=== PATIENT | female | born 1985 | race African-American/Black ===

== ENCOUNTER 2018-06-06 20:01 | Emergency (ER) | payer OTHER ==
[~2018-06-06] VITALS: Ht 165.1 cm; Wt 90.9 kg
[2018-06-07] MEDS ORDERED: IPRATROPIUM BROMIDE (0.02%) 0.5MG/2.5ML NEB HHN STA (09:45)
[2018-06-07] MEDS ORDERED: ALBUTEROL (0.083%) 2.5MG/3ML NEB HHN STA (09:45)
[2018-06-07] MEDS ORDERED: AMLODIPINE 10MG TABLET PO ONE (10:00)
[2018-06-07] MEDS ORDERED: HYDROCHLOROTHIAZIDE 25MG TABLET PO ONE (10:00)
[2018-06-07 11:36] VITALS: BP 160/78
== END 2018-06-07 11:52 | disposition home or self-care (01) ==
LOC: ER 20:01
DX: R05 Cough (principal); I10 Essential (primary) hypertension; F12.10 Cannabis abuse, uncomplicated; D64.9 Anemia, unspecified
CPT/HCPCS: 71045; 81025; 94640; 99283; J7611

== ENCOUNTER 2020-11-25 08:43 | Emergency (ER) | payer OTHER ==
[~2020-11-25] VITALS: Ht 157.5 cm; Wt 98.0 kg
[2020-11-25] MEDS ORDERED: MORPHINE SULFATE 4 MG/ML CPJ (NOT FOR IM USE) IV STA (09:59)
[2020-11-25] MEDS ORDERED: ONDANSETRON HCL 4MG/2ML INJ IV STA (09:59)
[2020-11-25] MEDS ORDERED: SODIUM CHLORIDE 0.9% 1,000 ML IV ONE (10:00)
[2020-11-25] MEDS ORDERED: CLONIDINE 0.2MG TABLET PO ONE (10:45)
[2020-11-25 11:06] LABS: BASOPHILS % 0.7 % (0.0-2.0); CLARITY URINE CLEAR (CLEAR); COLOR URINE YELLOW (YELLOW); EOSINOPHILS % 1.1 % (0.0-5.0); HEMATOCRIT. 41.2 % (36.0-48.0); HEMOGLOBIN. 13.9 g/dL (12.0-16.0); KETONES URINE NEGATIVE (NEGATIVE); LEUKOCYTE ESTERASE URINE NEGATIVE (NEGATIVE); LYMPHOCYTES % 18.6 % (20.0-50.0); MEAN CORPUSCULAR HEMOGLOBIN 28.7 pg (28.0-32.0); MEAN CORPUSCULAR VOLUME 85.3 fL (81.0-99.0); MEAN PLATELET VOLUME 8.9 fl (7.4-10.4); MONOCYTES % 5.2 % (2.0-8.0); NEUTROPHILS % 74.4 % (40.0-76.0); NITRITE URINE NEGATIVE (NEGATIVE); OCCULT BLOOD URINE NEGATIVE (NEGATIVE); PLATELET 279 x1000/uL (130-400); PROTEIN URINE NEGATIVE (NEGATIVE); RED BLOOD CELL COUNT 4.83 mill/uL (4.2-5.4); RED CELL DISTRIBUTION WIDTH 13.8 % (11.6-14.6); SPECIFIC GRAVITY URINE 1.003 (1.005-1.030); UROBILINOGEN URINE 0.2 E.U./dL (0.2-1.0)
[2020-11-25 11:16] LABS: CHLORIDE 104 mEq/L (98-107)
[2020-11-25] MEDS ORDERED: CLONIDINE 0.1MG TABLET PO ONE (13:30)
[2020-11-25] MEDS ORDERED: AMLO5TAB4 MT (14:22)
[2020-11-25] MEDS ORDERED: HYDR25TA MT (14:22)
[2020-11-25] MEDS ORDERED: IBUP-2028 MT (14:25)
[2020-11-25] MEDS ORDERED: IOHEXOL-300 100 ML BOTTLE ONE (14:40)
[2020-11-25 15:09] VITALS: BP 188/109
== END 2020-11-25 15:25 | disposition home or self-care (01) ==
LOC: ER 08:43
DX: S30.1XXA Contusion of abdominal wall, initial encounter (principal); I10 Essential (primary) hypertension; J45.909 Unspecified asthma, uncomplicated; F12.10 Cannabis abuse, uncomplicated; Z91.018 Allergy to other foods; Z91.048 Other nonmedicinal substance allergy status; V43.52XA Car driver injured in collision with other type car in traffic accident, initial encounter; Y93.89 Activity, other specified; Y92.488 Other paved roadways as the place of occurrence of the external cause
CPT/HCPCS: 36415; 71045; 71260; 74177; 80053; 81003; 81025; 83690; 85025; 93005; 96374; 96375; 99285; J2270; J2405; J7030; Q9967

== ENCOUNTER 2020-12-25 21:11 | Emergency (ER) | payer OTHER ==
[~2020-12-25] VITALS: Ht 165.1 cm; Wt 90.0 kg
[~2020-12-25 21:11] MED LIST: AMLO5TAB4 MT; HYDR25TA MT; IBUP-2028 MT
[2020-12-25] MEDS ORDERED: ACETAMINOPHEN 325MG TABLET PO STA (23:13)
[2020-12-25] MEDS ORDERED: FAMOTIDINE 20MG TABLET PO ONE (23:15)
[2020-12-25 23:46] LABS: BASOPHILS % 0.9 % (0.0-2.0); HEMATOCRIT. 36.7 % (36.0-48.0); HEMOGLOBIN. 12.9 g/dL (12.0-16.0); LYMPHOCYTES % 38.5 % (20.0-50.0); MEAN CORPUSCULAR VOLUME 82.7 fL (81.0-99.0); MEAN PLATELET VOLUME 8.6 fl (7.4-10.4); MONOCYTES % 7.2 % (2.0-8.0); NEUTROPHILS % 50.4 % (40.0-76.0); PLATELET 267 x1000/uL (130-400); RED BLOOD CELL COUNT 4.44 mill/uL (4.2-5.4); RED CELL DISTRIBUTION WIDTH 13.5 % (11.6-14.6)
[2020-12-25 23:53] LABS: CHLORIDE 104 mEq/L (98-107)
[2020-12-26] MEDS ORDERED: POTASSIUM CHLORIDE 20MEQ TABLET SR PO SCH (00:15)
[2020-12-26] MEDS ORDERED: P50 MT (00:27)
[2020-12-26 01:30] VITALS: BP 150/86
== END 2020-12-26 01:30 | disposition home or self-care (01) ==
LOC: ER 21:11
DX: R07.89 Other chest pain (principal); J45.909 Unspecified asthma, uncomplicated; D64.9 Anemia, unspecified; I10 Essential (primary) hypertension; Z79.899 Other long term (current) drug therapy
CPT/HCPCS: 36415; 71045; 80053; 81025; 83880; 84484; 85025; 85379; 93005; 99285